=== PATIENT | male | born 1955 | race Caucasian/White ===

== ENCOUNTER 2019-04-20 20:51 | Emergency (ER) | payer MEDICARE, OTHER ==
[~2019-04-20] VITALS: Ht 170.2 cm; Wt 57.2 kg
[~2019-04-20 20:51] MED LIST: AMBIEN10 MG; HYDROCODONE
--- OUTSIDE RECORDS SUMMARY | 2019-04-20 20:55 | XMS REPORT ---
Author Author [facility] Address Unknown Phone Unavailable Care Team Providers Care Tram Driver Name Role Phone Unavailable Unavailable Payers Payer Name Policy Type Policy Number Effective Date Expiration Date Problems This patient has no known problems. Allergies, Adverse Reactions, Alerts Allergy Name Allergy Type Status Severity Reaction(s) Onset Date Inactive Date Treating Clinician Comments No Known Allergies DA Active U 2018-11-09 00:00:00 No Known Allergies DA Active U 2018-05-09 00:00:00 No Known Contrast Allergies DA Active U 2003-05-08 00:00:00 No Known Drug Allergies DA Active U 2003-05-08 00:00:00 No Known Food Allergies DA Active U 2003-05-08 00:00:00 No Known Other Allergies DA Active U 2003-05-08 00:00:00 Medications This patient has no known medications. Results Test Description Test Time Test Comments Text Results Atomic Results Result Comments BASIC METABOLIC PANEL 2019-03-31 05:35:00 SODIUM (test code=NA) 143 MMOL/L 136-143 POTASSIUM (test code=K) 4.5 MMOL/L 3.5-5.1 CHLORIDE (test code=CL) 103 MMOL/L 98-107 CARBON DIOXIDE (test code=CO2) 31 mmol/L 24-31 GLUCOSE (test code=GLU) 103 mg/dL 70-104 BLOOD UREA NITROGEN (test code=BUN) 17.5 MG/DL 7.0-21.0 GLOMERULAR FILTRATION RATE (test code=GFR) >=60 max estimate >60 The estimated glomerular filtration rate is computed usingpatient race, age (>18), sex, and serum creatinine. If anyof the needed data elements are missing the Laboratory cannot compute an estimation of the glomerular filtration rate. CREATININE (test code=CREAT) 1.0 mg/dL 0.8-1.5 CALCIUM (test code=CA) 9.3 mg/dL 8.8-10.2 CBC W/AUTO [id number] 05:17:00* Test Item Value Reference Range Comments WHITE BLOOD CELL (test code=WBC) 4.0 x10 3/uL 4.8-10.8 RED BLOOD CELL (test code=RBC) 3.55 x10 6/uL 4.70-6.10 HEMOGLOBIN (test code=HGB) 10.2 g/dL 14.5-20 HEMATOCRIT (test code=HCT) 32.2 % 42.0-52.0 MEAN CELL VOLUME (test code=MCV) 90.7 fL 80.0-94.0 MEAN CELL HGB (test code=MCH) 28.7 pg 27-31 MEAN CELL HGB CONCENTRATION (test code=MCHC) 31.7 G/DL 33-36.5 RED CELL DISTRIBUTION WIDTH (test code=RDW) 14.2 % 12.9-16.9 PLATELET COUNT (test code=PLT) 134 150-440 MEAN PLATELET VOLUME (test code=MPV) 9.9 fL 8.9-12.4 NEUTROPHIL % (test code=NT%) 49.7 % 42.2-75.2 LYMPHOCYTE % (test code=LY%) 31.6 % 20.5-51.1 MONOCYTE % (test code=MO%) 16.9 % 1.7-9.3 EOSINOPHIL % (test code=EO%) 1.0 % 0.0-7.0 BASOPHIL % (test code=BA%) 0.3 % 0-2.5 NEUTROPHIL # (test code=NT#) 1.97 x10 3/uL 1.80-7.70 LYMPHOCYTE # (test code=LY#) 1.25 x10 3/uL 1.00-4.80 MONOCYTE # (test code=MO#) 0.67 x10 3/uL 0.00-0.80 EOSINOPHIL # (test code=EO#) 0.04 x10 3/uL 0.00-0.45 BASOPHIL # (test code=BA#) 0.01 x10 3/uL 0.0-0.20 BASIC METABOLIC [id number] 04:38:00* Test Item Value Reference Range Comments SODIUM (test code=NA) 141 MMOL/L 136-143 POTASSIUM (test code=K) 4.5 MMOL/L 3.5-5.1 CHLORIDE (test code=CL) 101 MMOL/L 98-107 CARBON DIOXIDE (test code=CO2) 33 mmol/L 24-31 GLUCOSE (test code=GLU) 101 mg/dL 70-104 BLOOD UREA NITROGEN (test code=BUN) 14.8 MG/DL 7.0-21.0 GLOMERULAR FILTRATION RATE (test code=GFR) >=60 max estimate >60 The estimated glomerular filtration rate is computed usingpatient race, age (>18), sex, and serum creatinine. If anyof the needed data elements are missing the Laboratory cannot compute an estimation of the glomerular filtration rate. CREATININE (test code=CREAT) 1.0 mg/dL 0.8-1.5 CALCIUM (test code=CA) 9.0 mg/dL 8.8-10.2 CBC W/AUTO [id number] 04:25:00* Test Item Value Reference Range Comments WHITE BLOOD CELL (test code=WBC) 3.8 x10 3/uL 4.8-10.8 RED BLOOD CELL (test code=RBC) 3.38 x10 6/uL 4.70-6.10 HEMOGLOBIN (test code=HGB) 9.8 g/dL 14.5-20 HEMATOCRIT (test code=HCT) 30.6 % 42.0-52.0 MEAN CELL VOLUME (test code=MCV) 90.5 fL 80.0-94.0 MEAN CELL HGB (test code=MCH) 29.0 pg 27-31 MEAN CELL HGB CONCENTRATION (test code=MCHC) 32.0 G/DL 33-36.5 RED CELL DISTRIBUTION WIDTH (test code=RDW) 14.6 % 12.9-16.9 PLATELET COUNT (test code=PLT) 122 150-440 MEAN PLATELET VOLUME (test code=MPV) 10.7 fL 8.9-12.4 NEUTROPHIL % (test code=NT%) 46.8 % 42.2-75.2 LYMPHOCYTE % (test code=LY%) 30.4 % 20.5-51.1 MONOCYTE % (test code=MO%) 20.2 % 1.7-9.3 EOSINOPHIL % (test code=EO%) 1.0 % 0.0-7.0 BASOPHIL % (test code=BA%) 0.3 % 0-2.5 NEUTROPHIL # (test code=NT#) 1.79 x10 3/uL 1.80-7.70 LYMPHOCYTE # (test code=LY#) 1.16 x10 3/uL 1.00-4.80 MONOCYTE # (test code=MO#) 0.77 x10 3/uL 0.00-0.80 EOSINOPHIL # (test code=EO#) 0.04 x10 3/uL 0.00-0.45 BASOPHIL # (test code=BA#) 0.01 x10 3/uL 0.0-0.20 [id number] 14:19:00* Test Item Value Reference Range Comments FERRITIN (test code=DEMETRIO) 1263 ng/mL 30-400 BASIC METABOLIC [id number] 11:43:00* Test Item Value Reference Range Comments SODIUM (test code=NA) 142 MMOL/L 136-143 POTASSIUM (test code=K) 4.3 MMOL/L 3.5-5.1 CHLORIDE (test code=CL) 101 MMOL/L 98-107 CARBON DIOXIDE (test code=CO2) 28 mmol/L 24-31 GLUCOSE (test code=GLU) 119 mg/dL 70-104 BLOOD UREA NITROGEN (test code=BUN) 13.5 MG/DL 7.0-21.0 GLOMERULAR FILTRATION RATE (test code=GFR) >=60 max estimate >60 The estimated glomerular filtration rate is computed usingpatient race, age (>18), sex, and serum creatinine. If anyof the needed data elements are missing the Laboratory cannot compute an estimation of the glomerular filtration rate. CREATININE (test code=CREAT) 0.9 mg/dL 0.8-1.5 CALCIUM (test code=CA) 9.4 mg/dL 8.8-10.2 [id number] 11:25:00* Test Item Value Reference Range Comments PREALBUMIN (test code=PREALB) 17.1 MG/ML 15-42 LIVER FUNCTION [id number] 11:10:00* Test Item Value Reference Range Comments TOTAL PROTEIN (test code=PROT) 7.4 g/dL 6.3-8.3 ALBUMIN (test code=ALB) 4.3 G/DL 3.5-5.0 BILIRUBIN TOTAL (test code=BILT) 0.6 mg/dL 0.2-1.0 BILIRUBIN DIRECT (test code=BILD) <0.2 mg/dL 0.0-0.2 SGOT/AST (test code=AST) 12 IU/L 10-34 SGPT/ALT (test code=ALT) < 6 U/L 10-44 ALKALINE PHOSPHATASE (test code=ALKP) 89 U/L 45-120 [id number] 11:03:00* Test Item Value Reference Range Comments PHOSPHOROUS (test code=PHOS) 3.2 mg/dL 2.7-4.5 CBC W/AUTO [id number] 10:21:00* Test Item Value Reference Range Comments WHITE BLOOD CELL (test code=WBC) 4.3 x10 3/uL 4.8-10.8 RED BLOOD CELL (test code=RBC) 3.59 x10 6/uL 4.70-6.10 HEMOGLOBIN (test code=HGB) 10.5 g/dL 14.5-20 HEMATOCRIT (test code=HCT) 32.4 % 42.0-52.0 MEAN CELL VOLUME (test code=MCV) 90.3 fL 80.0-94.0 MEAN CELL HGB (test code=MCH) 29.2 pg 27-31 MEAN CELL HGB CONCENTRATION (test code=MCHC) 32.4 G/DL 33-36.5 RED CELL DISTRIBUTION WIDTH (test code=RDW) 14.7 % 12.9-16.9 PLATELET COUNT (test code=PLT) 127 150-440 MEAN PLATELET VOLUME (test code=MPV) 10.2 fL 8.9-12.4 NEUTROPHIL % (test code=NT%) 71.4 % 42.2-75.2 LYMPHOCYTE % (test code=LY%) 15.2 % 20.5-51.1 MONOCYTE % (test code=MO%) 11.3 % 1.7-9.3 EOSINOPHIL % (test code=EO%) 0.7 % 0.0-7.0 BASOPHIL % (test code=BA%) 0.2 % 0-2.5 NEUTROPHIL # (test code=NT#) 3.10 x10 3/uL 1.80-7.70 LYMPHOCYTE # (test code=LY#) 0.66 x10 3/uL 1.00-4.80 MONOCYTE # (test code=MO#) 0.49 x10 3/uL 0.00-0.80 EOSINOPHIL # (test code=EO#) 0.03 x10 3/uL 0.00-0.45 BASOPHIL # (test code=BA#) 0.01 x10 3/uL 0.0-0.20 VITAMIN [id number] 22:22:00* Test Item Value Reference Range Comments VITAMIN B12 (test code=VITB12) 1260 PG/ML 211-946 THYROID STIMULATING [id number] 22:17:00* Test Item Value Reference Range Comments THYROID STIMULATING HORMONE (test code=TSH) 1.25 mIU/L 0.27-4.20 HGBA1C - GLYCOSYLATED [id number] 22:04:00* Test Item Value Reference Range Comments GLYCOSYLATED HEMOGLOBIN (HA1C) (test code=GLYHGB) 5.1 % 0.0-5.6 INTERPRETATIVE DATA:HGBA1C levels above the established reference range are anindication of hyperglycemia during the preceeding 2 - 3months orlonger. HBA1C levels may reach 20% or higher in poorlycontrolled diabetes. Therapeutic action is suggested atlevels above 8%.Diabetic patients with HBA1C levels below 7% meet the goalof the [place] [employer]. Normal: <5.7Pre-Diabetes: 5.7 6.4Diabetic: >6.5Therapeutic goal for glycemic control: <7.0 B-TYPE NATRIURETIC [id number] 22:04:00* Test Item Value Reference Range Comments B-TYPE NATRIURETIC PEPTIDE (test code=BNP) 298 PG/ML 0-100 [id number] 22:04:00* Test Item Value Reference Range Comments TROPONIN-I (test code=TROPI) < 0.30 ng/mL 0.00-0.30 INTERPRETATIVE DATA:Negative or inconclusive reuslts do not exclude myocardialinfarction. Serial tests at appropriate intervals may benecessary. [id number] 22:04:00* Test Item Value Reference Range Comments AMMONIA (test code=AMM) 14 mcmol/L 11-32 PROTHROMBIN [id number] 22:01:00* Test Item Value Reference Range Comments PROTHROMBIN TIME PATIENT (test code=PTP) 12.5 SECONDS 10.3-12.9 INTERNATIONAL NORMAL RATIO (test code=INR) 1.08 INR UNIT 0.9-1.11 The INR is useful only for monitoring anticoagulant therapy.It may be unreliable in the initial phase of antigoagulationand in unstable patients. Indication for Anticoagulation Recommended INR 1. Prevention of venous thomboembolism 2.0-3.0in high-risk patients; treatment of venousthrombosis and pulmonary embolism aftera course of heparin; prevention of systemicembolism in a variety of conditions, including atrial fibrillation and prothetic tissue heart valves, 2. Prosthetic mechanical heart valves; 2.5-3.5recurrent systemic embolism. - XR CHEST 1 [id number] 17:18:00Patient Name: KELLY GONZALES Unit No: [id number] EXAMS: CPT CODE: [id number] XR CHEST 1 V 93342 INDICATIONS: sob COMPARISON: Comparison is made with prior study of 11/10/2018 Location: W1 A single portable AP view of the chest demonstrates a normal heart size with a calcified elongated aorta. There is asymmetric hazy opacity in the left upper lung. The remaining lung pierre are clear. A left-sided venous port terminates in the SVC. No apparent pleural effusion nor pneumothorax. The visualized bony structures are unremarkable. IMPRESSIONS: 1. There is hazy asymmetric opacity in the left upper lobe. Findings concerning for pneumonia. at 3401 Reported and signed by: Rush Paz MD CC: Jamal Taylor MD; Rinku Cardozo MD Technologist: Kumar Arthur Fluoro Time: DAP (Gy m2): Air Kerma (mGy): Trscr Dt/Tm: 03/28/2019 ([id number]) by:[email or web address] Printed Date/Time: 03/28/2019 (8251) Name: KELLY GONZALES [facility] Phys: Jamal Dallas [address] : 1955 Age: 63 Sex: [place] [address] Loc: P.ERS Exam Date: 03/28/2019 Status: REG ER PH: FAX: PAGE 1 Signed Report CREATINE KINASE (CK)2019-03-28 17:06:00* Test Item Value Reference Range Comments CREATINE KINASE (CK) (test code=CK) 53 U/L 24-204 PROTHROMBIN [id number] 16:59:00* Test Item Value Reference Range Comments PROTHROMBIN TIME PATIENT (test code=PTP) 12.4 SECONDS 10.3-12.9 INTERNATIONAL NORMAL RATIO (test code=INR) 1.07 INR UNIT 0.9-1.11 The INR is useful only for monitoring anticoagulant therapy.It may be unreliable in the initial phase of antigoagulationand in unstable patients. Indication for Anticoagulation Recommended INR 1. Prevention of venous thomboembolism 2.0-3.0in high-risk patients; treatment of venousthrombosis and pulmonary embolism aftera course of heparin; prevention of systemicembolism in a variety of conditions, including atrial fibrillation and prothetic tissue heart valves, 2. Prosthetic mechanical heart valves; 2.5-3.5recurrent systemic embolism. THROMBOPLASTIN TIME [id number] 16:59:00* Test Item Value Reference Range Comments THROMBOPLASTIN TIME PARTIAL (test code=PTT) 56.5 SECONDS 26.0-35.9 INTERPRETATIVE DATA:Therapeutic range: Unfractionated heparin:47 - 71 seconds Argatroban:1.5 to 3 times the baseline PTT CBC W/AUTO [id number] 16:54:00* Test Item Value Reference Range Comments WHITE BLOOD CELL (test code=WBC) 4.1 x10 3/uL 4.8-10.8 RED BLOOD CELL (test code=RBC) 2.59 x10 6/uL 4.70-6.10 HEMOGLOBIN (test code=HGB) 7.5 g/dL 14.5-20 HEMATOCRIT (test code=HCT) 23.7 % 42.0-52.0 MEAN CELL VOLUME (test code=MCV) 91.5 fL 80.0-94.0 MEAN CELL HGB (test code=MCH) 29.0 pg 27-31 MEAN CELL HGB CONCENTRATION (test code=MCHC) 31.6 G/DL 33-36.5 RED CELL DISTRIBUTION WIDTH (test code=RDW) 14.6 % 12.9-16.9 PLATELET COUNT (test code=PLT) 118 150-440 MEAN PLATELET VOLUME (test code=MPV) 10.3 fL 8.9-12.4 NEUTROPHIL % (test code=NT%) 58.0 % 42.2-75.2 LYMPHOCYTE % (test code=LY%) 24.1 % 20.5-51.1 MONOCYTE % (test code=MO%) 15.5 % 1.7-9.3 EOSINOPHIL % (test code=EO%) 0.7 % 0.0-7.0 BASOPHIL % (test code=BA%) 0.2 % 0-2.5 NEUTROPHIL # (test code=NT#) 2.35 x10 3/uL 1.80-7.70 LYMPHOCYTE # (test code=LY#) 0.98 x10 3/uL 1.00-4.80 MONOCYTE # (test code=MO#) 0.63 x10 3/uL 0.00-0.80 EOSINOPHIL # (test code=EO#) 0.03 x10 3/uL 0.00-0.45 BASOPHIL # (test code=BA#) 0.01 x10 3/uL 0.0-0.20 CHEMISTRY 8 [id number] 16:47:00* Test Item Value Reference Range Comments SODIUM POC (test code=NAP) MMOL/L 135-146 POTASSIUM POC (test code=KP) MMOL/L 3.5-4.9 CHLORIDE POC (test code=CLP) MMOL/L 98-109 CO2 POC (test code=CO2P) mmol/L 24-29 IONIZED CALCIUM POC (test code=CAIP) mmol/L 1.12-1.32 GLUCOSE POC (test code=GLUP) mg/dL 70-105 BUN POC (test code=BUNP) MG/DL 8-26 CREATININE POC (test code=CREATP) mg/dL 0.6-1.3 GLOMERULAR FILTRATION RATE POC (test code=GFRP) 47 49-113 CHEMISTRY 8 [id number] 16:47:00* Test Item Value Reference Range Comments SODIUM POC (test code=NAP) 139 MMOL/L 135-146 POTASSIUM POC (test code=KP) 4.6 MMOL/L 3.5-4.9 CHLORIDE POC (test code=CLP) 102 MMOL/L 98-109 CO2 POC (test code=CO2P) 29 mmol/L 24-29 IONIZED CALCIUM POC (test code=CAIP) 1.14 mmol/L 1.12-1.32 GLUCOSE POC (test code=GLUP) 107 mg/dL 70-105 BUN POC (test code=BUNP) 22 MG/DL 8-26 CREATININE POC (test code=CREATP) 1.5 mg/dL 0.6-1.3 GLOMERULAR FILTRATION RATE POC (test code=GFRP) 47 49-113 [id number] 12:02:00 RUN DATE: 05/12/18 [place] [facility] PAGE 1 RUN TIME: 1203 Specimen Inqui ry RUN USER: INTERFACE PATIENT: KELLY GONZALES ACCT #: V [id number] LOC: CamilaMARITZA U #: [id number] AGE/SX: 63/M ROOM: RE05/11/18REG DR: Jhonny Torres MD : 53 BED: DIS: STATUS: DEP SDC TLOC: SPEC #: [id number] RECD: 05/11/18 STATUS: SARAH GUERRERO #: [id number] SANTIAGO: 05/11/18 DR: Jhonny Torres MD ENTERED: 05/11/18 SP TYPE: LUNG OTHR DR: Johnathan Prado MD, Deepak MD TUMOR REGISTRYORDERED: GROSS COPIES TO: Johnathan Prado MD [address] [place] [address] Jhonny Torres MD [address] [place] [address] Adi Qiu MD [address] [place] [address] TUMOR REGISTRY MARKERS: INTRADEPAR TMENTAL CONSULT, MALIGNANCY PROCEDURES: GROSS (05/12/18-1110) TISSUES: LUNG, NOS - FNA; BX AND 4 SLIDDES CLINICAL HISTORY COLLECTION DATE: 05/11/2018 JACOB MASS POST-OP DIAGNOSIS: ? LUNG CANCER COMME NT Intradepartmental consultation: ANH C ONTINUED ON NEXT PAGE RUN DATE: 05/12/18 [facility] PAGE 2 RUN TIME: 1203 Specimen Inquiry RUN USER: INTERFACE SPEC #: [id number] PATIENT: KELLY GONZALES #[id number] (Continued) - FINAL DIAGNOSIS Lung, left upper lobe mass, core needle biopsy and touch preparations: NON-SMALL CELL CARCINOMA IMMUNOHISTOCHEMICAL STAINS ARE PENDING FOR FURTHER CHARACTERIZATION AND AN ADDENDUM REPORT WILL BE ISSUED Mallika Rodríguez [address], [id number], [phone] MACRO SCOPIC The specimen is received in formalin labeled with the patient's name a nd identified as "JACOB mass bx". It consists of fragments of thin caal needle core biopsy tissue measuring 1.0 x 0.2 x 0.1 cm in aggregate. The tissue is strained through a biopsy bag and entirely submitted in a single cassette for microscopic evaluation. Blue ink is placed on the tissue. Also received are four slides for processing and evaluation. GROSS PERFORMED AT [address], [place] [address] (p)[phone] MICROSCOPIC Sections of "JACOB mass biopsy" show a malignant tumor infiltrating into lung parenchyma. The tumor cells are infil trating in irregular nests. Definite glandular structures are not clearly seen . The tumor cells are medium to large in size with round to irregular nuclear contours, condensed chromatin, scattered prominent, red nucleoli and abundant cytoplasm. The touch preparations show similar cytologic features. MICR OSCOPIC PERFORMED AT [facility] All of the stains, including any c ontrols performed, stain appropriately. [address] [place] [address] (p)[phone] CONTINUED ON NEXT PAGE RUN DATE: 05/12/18 [facility] PAGE 3 RUN TIME: 1203 Specimen Inquiry RUN USER: INTERFACE SPEC #: [id number] PATIENT: KELLY GONZALES #[id number] (Continued)---- -------- PERFORMING SITE Diagnosis performed at: [facility] [address] [facility] [address] Signed SIGNATURE ON Caitlyn Vela 05/12/18 1202 END OF REPORT [id number] 12:02:00 RUN DATE: 05/16/18 [place] [facility] PAGE 1 RUN TIME: 1540 Specimen Inqui ry RUN USER: INTERFACE PATIENT: KELLY GONZALES ACCT #: V [id number] LOC: DavidMisaelMARITZA U #: [id number] AGE/SX: 63/M ROOM: RE05/11/18REG DR: Jhonny Torres MD : 53 BED: DIS: STATUS: DEP JAGJITC TLOC: SPEC #: [id number] RECD: 05/11/18-1022 STATUS: SARAH GUERRERO #: [id number] SANTIAGO: 05/11/18- SUBM DR: Jhonny Torres MD ENTERED: 05/11/188551 SP TYPE: LUNG OTHR DR: Johnathan Prado MD, Deepak MD TUMOR REGISTRYORDERED: GROSS COPIES TO: Johnathan Prado MD [address] [place] [address] Jhonny Torres MD [address] [place], [place] [address] Adi Qiu MD [address] [place] [address] TUMOR REGISTRY MARKERS: INTRADEPAR TMENTAL CONSULT, MALIGNANCY PROCEDURES: GROSS (05/12/18-1110) TISSUES: LUNG, NOS - FNA; BX AND 4 SLIDDES ADDENDUM FINDINGS Addendum #1 Entered: 05/16/18 This addendum is to report the immunohistochemical findings and provide an interpretation. Immunohistochemical stains with a ppropriate controls were performed at [place] and interpreted at [facility]. The tumor cells are positive for CK7 and TTF-1. The jl or cells are negative for CK5/6. 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 CONTINUED ON NEXT PAGE RUN DATE: 05/16/18 [facility] PAGE 2 RUN TIME: 1540 Specimen Inquiry RUN USER: INTERFACE SPEC #: [id number] PATIENT: KELLY GONZALES #[id number] (Continued) -- ADDENDUM FINDINGS (Continued) INTRADEPARTMENT CONSULTATI ON: [facility] Addendum Signed SIGNATURE ON FILE O Caitlyn Latham Gallito 11/26 1540 CLINICAL HISTORY COLLECTION DATE: 8 JACOB MASS POST-OP DIAGNOSIS: ? LUNG CANCER COMMENT Intra departmental consultation: [facility] FINAL DIAGNOSIS Lung, left upper lobe mass, core needle biopsy and touch preparations: NON-SMALL CELL CARCINOMA IMMUNOHISTOCHEMICAL STAINS ARE PENDING FOR FURTHER CHARACTERIZATION AND AN ADDENDUM REPORT WILL BE ISSUED Mallika Rodríguez [address], [id number], [phone] MACROSCOPIC The specimen is received in formalin labe led with the patient's name and identified as "JACOB mass bx". It consists of f ragments of thin caal needle core biopsy tissue measuring 1.0 x 0.2 x 0.1 cm i n aggregate. The tissue is strained through a biopsy bag and entirely submitt ed in a single cassette for microscopic evaluation. Blue ink is placed on the tissue. Also received are four slides for processing and evaluation. GROSS PERFORMED AT [facility] [address] [place] [address], [place] [address] (P)[phone] CONTINUED ON NEXT PAGE RUN DATE: 05/16/18 [facility] PAGE 3 RUN TIME: 1540 Specimen Inquiry RUN USER: INTERFACE SPEC #: [id number] PATIENT: KELLY GONZALES #[id number] (Continued)----- ------- MICROSCOPIC Sections of "JACOB mass biopsy" show a malignant tumor infiltrating into lung parenchyma. The tumor cells are infiltrating in irregular nests. Definite glandular structures are not clearly seen. The tumor cells are medium to large in size with round to irregular nuclear contours, c ondensed chromatin, scattered prominent, red nucleoli and abundant cytoplasm. The touch preparations show similar cytologic features. MICROSCOPIC PER FORMED AT [facility] All of the stains, including any controls per formed, stain appropriately. [facility] [address] [place] [address], [place] [address] (P)[phone] PERFORMING SITE Diagnosis perfor med at: [facility], [place] [address] [facility], [place] [address] Signed SIGNATURE ON FILE Caitlyn Torres 05/12/18 1202 END OF REPORT
[2019-04-20 22:24] LABS: EOSINOPHILS % 0.2 % (0.0-6.0); HEMATOCRIT 26.9 % (38.2-49.6); HEMOGLOBIN 8.8 g/dL (14.0-18.0); LYMPHOCYTES # (AUTO) 0.8 (1.0-3.2); LYMPHOCYTES % 7.9 % (18.0-39.1); MEAN CORPUSCULAR HEMOGLOBIN 28.2 pg (28-32); MEAN CORPUSCULAR HGB CONC 32.7 g/dL (31-35); MEAN CORPUSCULAR VOLUME 86.2 fL (81-99); MONOCYTES # (AUTO) 1.1 (0.2-0.8); MONOCYTES % 10.7 % (4.4-11.3); NEUTROPHILS # (AUTO) 7.9 (2.1-6.9); NEUTROPHILS % 79.5 % (38.7-80.0); RED BLOOD COUNT 3.12 x10e6/uL (4.3-5.7); RED CELL DISTRIBUTION WIDTH 14.9 % (11.7-14.4)
[2019-04-20 22:27] LABS: PLATELET COUNT 79 x10e3/uL (140-360)
[2019-04-20 22:35] LABS: INR 1.36; PROTHROMBIN TIME 17.4 seconds (11.9-14.5)
[2019-04-20 22:36] LABS: PARTIAL THROMBOPLASTIN TIME 53.8 seconds (23.8-35.5)
[2019-04-20 22:42] LABS: ALBUMIN 3.6 g/dL (3.5-5.0); ALBUMIN/GLOBULIN RATIO 0.8 (0.8-2.0); ANION GAP 13.9 mmol/L (8-16); CALCIUM 9.6 mg/dL (8.4-10.2); CREATININE, SERUM 2.52 mg/dL (0.72-1.25); POTASSIUM 3.9 mmol/L (3.5-5.1)
--- NOTE | 2019-04-20 22:50 | Diagnostic Imaging Report ---
EXAMINATION: CHEST SINGLE (PORTABLE) INDICATION: Lung cancer. Pain. COMPARISON: 06/07/2012. FINDINGS: TUBES and LINES: Chest Port-A-Cath with distal tip projected on the cavoatrial junction. Small tube projected on the left mid hemithorax laterally, possibly overlying patient. LUNGS: Lungs are well inflated. Ill-defined irregular patchy density in the left upper lobe may represent patient's reported lung cancer. Mild elevation of the left hemidiaphragm. PLEURA: No pleural effusion or pneumothorax. HEART AND MEDIASTINUM: The cardiomediastinal silhouette is unremarkable. There are atherosclerotic calcifications within the aorta. BONES AND SOFT TISSUES: No acute osseous lesion. Soft tissues are unremarkable. UPPER ABDOMEN: No free air under the diaphragm. Residual oral contrast within the colon. Mild to moderate gaseous distention of the splenic flexure of the colon. IMPRESSION: Ill-defined irregular patchy density in the left upper lobe may represent patient's reported lung cancer. Otherwise no acute abnormality. Signed by: Dr. Swapnil Gregory M.D. on 04/20/2019 10:47 PM
[2019-04-20] MEDS ORDERED: HEPARIN SOD (PORCINE) 1000 UNIT/ML SDV ONE (23:26)
[2019-04-20] MEDS ORDERED: SODIUM CHLORIDE 0.9% 1000ML 1,000 ML IV STA (23:39)
== END 2019-04-21 01:35 | disposition home or self-care (01) ==
LOC: ER 20:51
DX: N28.9 Disorder of kidney and ureter, unspecified (principal); C34.90 Malignant neoplasm of unspecified part of unspecified bronchus or lung; B18.2 Chronic viral hepatitis C; F17.200 Nicotine dependence, unspecified, uncomplicated; D69.6 Thrombocytopenia, unspecified
CPT/HCPCS: 36415; 71045; 80053; 85025; 85610; 85730; 99283; J1644; J7030